=== PATIENT | male | born 1925 | race Caucasian/White ===

== ENCOUNTER → 2016-08-25 | Outpatient (CLI) | payer MEDICARE, BC ==
--- NOTE | 2016-08-25 15:43 | US ---
EXAMINATION TYPE: US carotid duplex BILAT DATE OF EXAM: 08/25/2016 3:09 PM COMPARISON: No previous CLINICAL HISTORY: R42 dizziness. Headaches EXAM MEASUREMENTS: RIGHT: Peak Systolic Velocity (PSV) cm/sec ----- Right CCA: 88.8 ----- Right ICA: 88.6 ----- Right ECA: 194.2 ICA/CCA ratio: 1.0 RIGHT: End Diastole cm/sec ----- Right CCA: 15.0 ----- Right ICA: 24.8 ----- Right ECA: 0.0 LEFT: Peak Systolic Velocity (PSV) cm/sec ----- Left CCA: 162.7 ----- Left ICA: 122.1 ----- Left ECA: 143.1 ICA/CCA ratio: 0.8 LEFT: End Diastole cm/sec ----- Left CCA: 24.8 ----- Left ICA: 25.2 ----- Left ECA: 0.0 VERTEBRALS (direction of flow): Right Vertebral: Antegrade Left Vertebral: Antegrade TECHNOLOGIST IMPRESSION: Bilateral intimal thickening, elevated velocities: right proximal CCA, righ t mid ECA, left proximal CCA, left distal CCA and left mid ECA, no significant stenosis Grayscale images show mild eccentric plaque at right carotid bulb. Increased peak systolic velocity i n right external carotid artery is identified. No significant focal plaque is seen at left carotid bu lb. Systolic velocities in left common, internal, and external carotid arteries is noted. Consider un derlying hypertension as 1 measurement of right proximal common carotid artery shows increased peak s ystolic velocity. Stenosis near origin also needs to BE considered. IMPRESSION: No hemodynamically significant stenosis in either internal carotid artery. Cannot exclud e significant stenosis at great vessel origin from aortic arch . Consider CTA or MRA neck correlatio n.
== END | disposition home or self-care (01) ==
LOC: RADUSWWP 14:48
PROVIDERS: ATTEND Psychiatry & Neurology Neurology
DX: R42 Dizziness and giddiness (principal)
CPT/HCPCS: 93880

== ENCOUNTER → 2016-08-28 | Outpatient (CLI) | payer MEDICARE, BC ==
--- NOTE | 2016-08-28 13:28 | MR ---
EXAMINATION TYPE: MR angio neck wo/w con DATE OF EXAM: 08/28/2016 12:48 PM COMPARISON: Correlation ultrasound 08/25/2016 HISTORY: 89-year-old male with dizziness, numbness, GREER Technique: Multiplanar, multisequence images of the neck were obtained before and after administratio n of 20 mL intravenous MultiHance gadolinium contrast. 2-D and 3-D [id number] vasculature are initially performed. FINDINGS: The arch vessel origins are widely patent. The vertebral arteries are patent throughout their course. Unable to exclude a moderate focal stenosis at the proximal right subclavian artery after the takeoff of the right common carotid artery. Both common carotid arteries are tortuous. The carotid bifurcations are patent. The right internal carotid artery is prominently tortuous looping posteriorly and then anteriorly. There is decreased flow related enhancement within the upper right cervical ICA for a length of appro ximately 1.5 cm prior to entering the petrous bone. Postcontrast series confirms this narrowing. Ther e is a tapered appearance with approximately 70% narrowing, series 503 image 34 before abruptly retur sarah to normal caliber. IMPRESSION: 1. 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 This has a tapered appearance with stenosis approaching 70% before abruptly returning to kostas l caliber. Narrowing from focal atherosclerotic change or a focal dissection are in the differential. There is no occlusion. 2. Unable to exclude a moderate focal stenosis of the proximal right subclavian artery at the level o f a hairpin turn. 3. Both of these findings can be further evaluated with conventional angiography as clinically indica tyrone.
== END | disposition home or self-care (01) ==
LOC: RADMRIMAIN 11:58
PROVIDERS: ATTEND Psychiatry & Neurology Pain Medicine
DX: I77.1 Stricture of artery (principal); R42 Dizziness and giddiness; R20.0 Anesthesia of skin; R51 Headache
CPT/HCPCS: 70549; A9577